=== PATIENT | female | born 1965 | race Caucasian/White ===

== ENCOUNTER 2016-12-11 13:22 | Emergency (ER) | payer BC ==
[~2016-12-11] VITALS: Ht 157.5 cm; Wt 87.0 kg
[~2016-12-11 13:22] MED LIST: CARAS PO; CIPR2.5D11 RIGHT EYE; DOCU-144 PO; HYDR-902 PO; LEVO125T58 PO; ONDA4SOL2 PO; PANT40TA3 PO
[2016-12-11 13:34] VITALS: Ht 157.5 cm; Wt 87.0 kg
[2016-12-11] MEDS ORDERED: LIDOCAINE/MYLANTA 40 ML BTL PO STA (18:00)
[2016-12-11] MEDS ORDERED: METOCLOPRAMIDE 10 MG INJ IV STA (18:00)
[2016-12-11] MEDS ORDERED: morphine 4 MG/ML VIAL IV STA (18:00)
[2016-12-11] MEDS ORDERED: TETR500C3 PO (18:13)
[2016-12-11] MEDS ORDERED: OMEP20CA16 PO (18:13)
[2016-12-11] MEDS ORDERED: BISM-34 PO (18:13)
[2016-12-11] MEDS ORDERED: HYDR-906 PO (18:13)
[2016-12-11] MEDS ORDERED: METR250T PO (18:13)
[2016-12-11 18:14] LABS: ADD SCAN DIFF NO
[2016-12-11 18:17] LABS: BASOPHIL # 0.1 10^3/ul (0.0-0.1); BASOPHILS % 0.7 % (0.0-2.0); EOSINOPHILS # 0.3 10^3/ul (0.0-0.5); EOSINOPHILS % 4.3 % (0.0-7.0); HEMATOCRIT 45.6 % (37.0-47.0); HEMOGLOBIN 15.3 g/dl (12.0-16.0); LYMPHOCYTES # 2.6 10^3/ul (0.8-2.9); LYMPHOCYTES % 38.3 % (15.0-51.0); MEAN CORPUSCULAR HEMOGLOBIN 31.5 pg (29.0-33.0); MEAN CORPUSCULAR HGB CONC 33.6 g/dl (32.0-37.0); MEAN PLATELET VOLUME 10.3 fl (7.4-10.4); MONOCYTE # 0.6 10^3/ul (0.3-0.9); MONOCYTES % 8.5 % (0.0-11.0); NEUTROPHIL # 3.1 10^3/ul (1.6-7.5); NEUTROPHILS % 47.2 % (39.0-77.0); PLATELET COUNT 240 10^3/UL (140-415); RED BLOOD COUNT 4.85 10^6/ul (4.20-5.40); RED CELL DISTRIBUTION WIDTH 11.8 % (11.5-14.5); WHITE BLOOD COUNT 6.7 10^3/ul (4.8-10.8)
[2016-12-11 18:25] LABS: ALBUMIN 4.4 g/dl (3.3-4.9)
[2016-12-11 18:26] LABS: POTASSIUM 3.7 mmol/L (3.5-5.1)
[2016-12-11 18:28] LABS: BILIRUBIN,INDIRECT 0.3 mg/dl (0-1.1); BILIRUBIN,TOTAL 0.3 mg/dl (0.2-1.3); CREATININE 0.72 mg/dl (0.44-1.00)
[2016-12-11 18:29] LABS: ALBUMIN/GLOBULIN RATIO 1.25; TOTAL PROTEIN 7.9 g/dl (6.1-8.1)
[2016-12-11] MEDS ORDERED: LEVO200T6 PO (18:36)
[2016-12-11] MEDS ORDERED: LANS15CA5 PO (18:37)
[2016-12-11] MEDS ORDERED: AMOX500T PO (18:37)
[2016-12-11] MEDS ORDERED: CLAR500T PO (18:38)
[2016-12-11] MEDS ORDERED: IBUP800T25 PO (18:38)
[2016-12-11 19:19] VITALS: BP 113/79; PULSE 70; RESP 20; TEMP 98.2
--- NOTE | 2016-12-11 23:16 | ERD ---
ER Documentation Chief Complaint Date/Time DATE: 12/11/16 TIME: 23:09 Chief Complaint AP SINCE LAT NIGHT, DIARRHEA HPI 51-year-old female with a history of H pylori diagnosed a few months ago presenting with epigastric pain. She states that several months ago she had an EGD done and was diagnosed with H pylori and treated at that time. The treatment did not work as her pain continued and she was reevaluated in the clinic last week, with a stool sample showing that she still had H pylori. She was started on the same 3 medications again which includes Prevacid, amoxicillin , and clarithromycin, but states this is not helping as it did not help the last time. She denies any vomiting but she states that she is very nauseated. Her pain is better with eating, worse with hunger. It is described as a burning , aching pain, intermittent, nonradiating. She has no associated fevers or chills. Some associated loose stools only 1-2 times a day. She does admit she is taking ibuprofen for her pain, which does not help much. She states that she wanted a referral to a tree thinner from the new clinic she is going to, however they refused to give her a referral. ROS All systems reviewed and are negative except as per history of present illness. Medications Home Meds Active Scripts Hydrocodone/Acetaminophen (Durbin 5-325 Tablet) 1 Each Tablet, 1 TAB PO Q6H Y for PAIN, #7 TAB Prov:JOSH LEAL MD 12/11/16 Omeprazole* (Omeprazole*) 20 Mg Capsule.dr, 20 MG PO BID, #60 CAP Prov:JOSH LEAL MD 12/11/16 Tetracycline Hcl* (Tetracycline Hcl*) 500 Mg Cap, 500 MG PO QID for 14 Days, CAP Prov:JOSH LEAL MD 12/11/16 Metronidazole* (Flagyl*) 250 Mg Tablet, 250 MG PO Q6 for 14 Days, TAB Prov:JOSH LEAL MD 12/11/16 Bismuth Subsalicylate* (Bismuth Subsalicylate*) 262 Mg/15 Ml Oral.susp, 30 ML PO Q6 for 14 Days, EA Prov:JOSH LEAL MD 12/11/16 Reported Medications Clarithromycin* (Clarithromycin*) 500 Mg Tablet, 500 MG PO BID, TAB 12/11/16 Ibuprofen* (Ibuprofen*) 800 Mg Tablet, 800 MG PO QID Y for PAIN, TAB 12/11/16 Lansoprazole* (Lansoprazole*) 15 Mg Capsule.dr, 30 MG PO BID, CAP 12/11/16 Amoxicillin* (Amoxil*) 500 Mg Tablet, 1000 MG PO BID, TAB 12/11/16 Levothyroxine Sodium* (Levothyroxine Sodium*) 200 Mcg Tablet, 200 MCG PO BEFORE BREAKFAST, #30 TAB 12/11/16 Discontinued Reported Medications Levothyroxine Sodium (Levothroid) 125 Mcg Tablet, 125 MCG PO AC BREAKFAST 08/14/11 Discontinued Scripts Hydrocodone/Acetaminophen (Durbin 10-325 Tablet) 1 Each Tablet, 1 TAB PO Q6H Y for PAIN, #7 TAB Prov:YASMINE QUAN MD 09/01/16 Docusate Sodium* (Colace*) 100 Mg Capsule, 100 MG PO TID, #30 CAP Prov:YASMINE QUAN MD 09/01/16 Pantoprazole* (Protonix*) 40 Mg Tablet., 40 MG PO DAILY for 30 Days, #60 TAB 2 Refills Prov:ERIC CEDEÑO S. 08/22/16 Ondansetron HCl (Zofran) 4 Mg/5 Ml Solution, 4 MG PO Q6 for 14 Days, #30 Prov:ERIC CEDEÑO S. 08/22/16 Sucralfate* (Carafate*) 1 Gm/10 Ml Susp, 1 GM PO QID for 30 Days, #120 2 Refills Prov:ERIC CEDEÑO S. 08/22/16 Ciprofloxacin Hcl (Ciprofloxacin Hcl) 2.5 Ml Drops, 1 DROP RIGHT EYE BID for 3 Days, #1 BOTTLE Prov:ERIC CEDEÑO S. 08/22/16 Allergies Allergies: Coded Allergies: No Known Allergy (Unverified , 12/11/16) PMhx/Soc History of Surgery: Yes (cholecystectomy) Anesthesia Reaction: No Hx Neurological Disorder: No Hx Respiratory Disorders: No Hx Cardiac Disorders: No Hx Psychiatric Problems: No Hx Miscellaneous Medical Probl: Yes (gastritis) Hx Alcohol Use: No Hx Substance Use: No Hx Tobacco Use: No Smoking Status: Never smoker FmHx Family History: No diabetes Physical Exam Vitals Vital Signs Date Time Temp Pulse Resp B/P Pulse Ox O2 Delivery O2 Flow Rate FiO2 12/11/16 19:19 98.2 70 20 113/79 99 Room Air 12/11/16 18:00 98.1 74 18 126/72 99 Room Air 12/11/16 13:34 98.1 69 18 124/69 99 Physical Exam Const: Well-appearing, mild distress secondary to pain, nontoxic Head: Atraumatic Eyes: Normal Conjunctiva ENT: Normal External Ears, Nose and Mouth. Neck: Full range of motion..~ No meningismus. Resp: Clear to auscultation bilaterally Cardio: Regular rate and rhythm, no murmurs Abd: Soft, moderate epigastric tenderness to palpation, no rebound or guarding, non distended. Normal bowel sounds Skin: No petechiae or rashes Back: No midline or flank tenderness Ext: No cyanosis, or edema Neur: Awake and alert Psych: Normal Mood and Affect Result Diagram: 12/11/16180912/11/161809 Results 24 hrs Laboratory Tests Test 12/11/16 18:10 Alanine Aminotransferase (ALT/SGPT) 85IU/L Albumin 4.4g/dl Albumin/Globulin Ratio 1.25 Alkaline Phosphatase 109IU/L Anion Gap 16 Aspartate Amino Transf (AST/SGOT) 49IU/L Basophils # 0.110^3/ul Basophils % 0.7% Blood Urea Nitrogen 12mg/dl Calcium Level 10.0mg/dl Carbon Dioxide Level 32mmol/L Chloride Level 102mmol/L Creatinine 0.72mg/dl Direct Bilirubin 0.00mg/dl Eosinophils # 0.310^3/ul Eosinophils % 4.3% Globulin 3.50g/dl Glucose Level 100mg/dl Hematocrit 45.6% Hemoglobin 15.3g/dl Indirect Bilirubin 0.3mg/dl Lipase 173U/L Lymphocytes # 2.610^3/ul Lymphocytes % 38.3% Mean Corpuscular Hemoglobin 31.5pg Mean Corpuscular Hemoglobin Concent 33.6g/dl Mean Corpuscular Volume 94.0fl Mean Platelet Volume 10.3fl Monocytes # 0.610^3/ul Monocytes % 8.5% Neutrophils # 3.110^3/ul Neutrophils % 47.2% Nucleated Red Blood Cells # 0.010^3/ul Nucleated Red Blood Cells % 0.0/100WBC Platelet Count 24213^3/UL Potassium Level 3.7mmol/L Red Blood Count 4.8510^6/ul Red Cell Distribution Width 11.8% Sodium Level 146mmol/L Total Bilirubin 0.3mg/dl Total Protein 7.9g/dl White Blood Count 6.710^3/ul Current Medications Medications (Trade) Dose Ordered Sig/Elder Route PRN Reason Start Time Stop Time Status Last Admin Dose Admin Morphine Sulfate (morphine) 4 mg ONCE STAT IV 12/11/16 18:00 12/11/16 18:01 DC 12/11/16 18:06 Metoclopramide HCl (Reglan) 10 mg ONCE STAT IV 12/11/16 18:00 12/11/16 18:01 DC 12/11/16 18:06 Miscellaneous Medication (Gi Cocktail (2)) 40 ml ONCE STAT PO 12/11/16 18:00 12/11/16 18:01 DC 12/11/16 18:06 Procedures/MDM EMERGENT LABS AND DIAGNOSTIC STUDIES: Lab Results above were reviewed and interpreted by me. No significant abnormalities 12-lead EKG was interpreted by Ag Leal MD: Normal Sinus Rhythm with ventricular rate of 63 beats per minute Normal axis Normal intervals No acute ST or T wave changes suggestive of acute ischemia or STEMI. Initial Nursing notes reviewed. Previous Medical Records requested via the Electronic Health Record. EMERGENCY DEPARTMENT COURSE / MEDICAL DECISION MAKING: Patient is presenting with epigastric pain likely secondary to her H pylori infection. She is afebrile and her vitals are stable. I have a low suspicion for an acute surgical abdomen. Her liver enzymes and lipase are all within normal limits. I have a low suspicion for acute coronary syndrome, pneumonia, aortic dissection, bowel obstruction, colitis, or bowel ischemia. The patient was very frustrated when I was talking to her and just wanted to be admitted for an endoscopy. I explained to her that she does not meet criteria for admission and that no one would emergently do that endoscopy on her given she is stable. I offered her morphine for her pain and a GI cocktail, which she agreed to. I also offered to change in her medication regimen for her H pylori. Given that she failed the last treatment, I decided to change her to quadruple therapy with prescriptions for bismuth, Flagyl, tetracycline, with a PPI. I also gave her a few tablets of Durbin to assist with her pain. I recommend that she try to get a GI referral. Patient was agreeable with the plan and discharged in a stable condition with improvement of her symptoms. Repeat abdominal exam prior to discharge was unremarkable with only mild tenderness in the epigastrium without peritonitis. Patient's blood pressure was elevated (>120/80) but appears stable without evidence of hypertensive emergency or urgency. The patient was counseled about the risks of hypertension and urged to pursue outpatient monitoring and therapy within a week with their primary care physician. Departure Diagnosis: Primary Impression: Epigastric pain Additional Impression: Helicobacter pylori (H. pylori) infection Condition: Stable Patient Instructions: Abdominal Pain, Understanding H. pylori and Ulcers Referrals: ADELA HUNTER Additional Instructions: You need a referral to a Dehydrating Press Operator by your primary medical doctor. JOSH LEAL MD Dec 11, 2016 23:15
== END 2016-12-11 19:20 | disposition home or self-care (01) ==
LOC: E/R 13:22
DX: R10.13 Epigastric pain (principal); B96.81 Helicobacter pylori [H. pylori] as the cause of diseases classified elsewhere
CPT/HCPCS: 36415; 80053; 83690; 85025; 96374; 96375; 99284; J2270; J2765; Z7610

== ENCOUNTER 2017-04-29 15:56 | Day surgery (SDC) | payer BC ==
[~2017-04-29] VITALS: Ht 162.6 cm; Wt 89.2 kg
[~2017-04-29 15:56] MED LIST changes: +AMOX500T PO; +BISM-34 PO; -CARAS PO; -CIPR2.5D11 RIGHT EYE; +CLAR500T PO; -DOCU-144 PO; -HYDR-902 PO; +HYDR-906 PO; +IBUP800T25 PO; +LANS15CA5 PO; -LEVO125T58 PO; +LEVO200T6 PO; +METR250T PO; +OMEP20CA16 PO; -ONDA4SOL2 PO; -PANT40TA3 PO; +TETR500C3 PO
[2017-04-29] MEDS ORDERED: LEVO200T6 PO (16:57)
[2017-04-29 17:35] VITALS: BP 148/72; PULSE 61; RESP 24
[2017-04-29] MEDS ORDERED: FENTAnyl 50 MCG/ML VIAL ONE (18:27)
[2017-04-29] MEDS ORDERED: MIDAZOLAM 1 MG/ML 2 ML INJ ONE ×3 (18:27)
--- NOTE | 2017-04-30 05:43 | GILP ---
DATE OF PROCEDURE: 04/29/2017 PROCEDURE PERFORMED: Screening colonoscopy. Rule out colon polyps. POSTOP DIAGNOSIS: 1. 5 mm sessile polyp noted in the mid transverse colon. This was removed with the help of the cold biopsy forceps. 2. Minimum grade 1 external hemorrhoids. DESCRIPTION OF PROCEDURE: After the informed written consent is obtained, patient was asked to lay in the left lateral side. The patient was given 5 mg of Versed and 75 mg of fentanyl and subsequently intravenous anesthesia was given by anesthesiologist, Dr. Montoya. At this time while the patient was somnolent Olympus video colonoscope was introduced into the rectum. The scope was advanced all the way to the cecum. A 3 mm raised polyp was noted in the mid transverse colon on a fold. This polyp was removed with help of the cold biopsy forceps. Endoscope at this time was withdrawn from the cecum. Further evaluation was carried out. No additional abnormality detected. Minimal external hemorrhoids were noted. The procedure was terminated. PLAN: Recommend wait for the pathology report. Dictated By: Sebastian Castro MD /al/jordin /Document#: [id number] ; Dr. Isabel Ayala [place]
== END 2017-04-29 19:30 | disposition home or self-care (01) ==
LOC: GIL 15:56
PROVIDERS: ATTEND Internal Medicine Gastroenterology
DX: Z12.11 Encounter for screening for malignant neoplasm of colon (principal); D12.3 Benign neoplasm of transverse colon; K64.4 Residual hemorrhoidal skin tags
CPT/HCPCS: 45380; J2250; J3010; Z7610; 88305

== ENCOUNTER → 2017-07-07 | Outpatient (CLI) | payer BC ==
[~2017-07-07] MED LIST changes: -AMOX500T PO; +BARIUM SULFATE 135 ML (E-Z HD) PO ONE; -BISM-34 PO; -CLAR500T PO; -HYDR-906 PO; -IBUP800T25 PO; -LANS15CA5 PO; -METR250T PO; -OMEP20CA16 PO; -TETR500C3 PO
--- NOTE | 2017-07-08 15:08 | RADRPT ---
PROCEDURE: Video-fluoroscopy swallowing study. CLINICAL INDICATION: Dysphagia. TECHNIQUE: Fluoroscopic guided video swallowing study was done in conjunction with the speech ther apist. The study was confined to the oral, pharyngeal, and cervical phases of the swallowing mechani sm. 1.0 minutes of fluoroscopy time was used. 13 series of images were obtained. COMPARISON: No prior study is available for comparison. FINDINGS: There is no evidence of aspiration during the exam. An anterior osteophyte is present and C6-7 causi ng effacement of the esophagus posteriorly. However, the esophageal diameter is normal at this site. IMPRESSION: 1. No aspiration during swallowing. 2. Please refer to the speech therapist's recommendations for future feedings. RPTAT: QQ .Ammon Kaiser MD, Date Time Electronically viewed and signed by .Ammon Kaiser MD, on 07/08/2017 15:08 .R/
== END | disposition home or self-care (01) ==
LOC: RAD 12:23
PROVIDERS: ATTEND Otolaryngology Facial Plastic Surgery
DX: R13.10 Dysphagia, unspecified (principal); K21.9 Gastro-esophageal reflux disease without esophagitis
CPT/HCPCS: 74230; 92611; Z7610

== ENCOUNTER 2017-10-29 10:00 | Day surgery (SDC) | END 2017-10-29 13:29 | disposition home or self-care (01) ==

== ENCOUNTER 2018-06-28 11:20 | Inpatient (IN) | END 2018-06-30 12:35 | disposition home or self-care (01) | DRG 206 ==

== ENCOUNTER 2018-10-31 12:42 | Emergency (ER) | payer BC ==
[~2018-10-31] VITALS: Ht 165.1 cm; Wt 83.9 kg
[~2018-10-31 12:42] MED LIST changes: -BARIUM SULFATE 135 ML (E-Z HD) PO ONE; +LEVO125T7 PO; -LEVO200T6 PO; +OMEP20CA16 PO
[2018-10-31 13:00] VITALS: Ht 165.1 cm; Wt 83.9 kg
[2018-10-31 16:51] VITALS: BP 116/65; PULSE 82; RESP 18
--- NOTE | 2018-10-31 18:45 | ERD ---
ER Documentation Chief Complaint Chief Complaint NOSE BLEED & NASAL SWELLING X2 DAYS, DIZZINESS AND CP HPI Patient is a 53-year-old female with no medical problems who presents with nosebleed. She has left-sided chest pain which she describes as "mild". She said that the symptoms started 6 or 7 months ago. She has not on blood thinning medications. The nosebleed has stopped at this time. Upon review of old medical records the patient has multiple visits to the ER for various complaints. Review of the emergency department information exchange system shows visits to 3 separate emergency departments. Her primary doctor is Dr. Juana Castañeda. ROS All systems reviewed and are negative except as per history of present illness. Medications Home Meds Active Scripts Omeprazole* (Omeprazole*) 20 Mg Capsule., 20 MG PO BEFORE BREAKFAST, #30 CAP 2 Refills Prov:KEKE SANFORD 06/30/18 Levothyroxine Sodium* (Levothyroxine Sodium*) 125 Mcg Tablet, 250 MCG PO BEFORE BREAKFAST for 30 Days, #60 TAB 3 Refills Prov:KEKE SANFORD 06/30/18 Allergies Allergies: Coded Allergies: No Known Allergy (Unverified , 06/26/18) PMhx/Soc History of Surgery: Yes (hysterectomy and appendectomy) Anesthesia Reaction: No Hx Neurological Disorder: No Hx Respiratory Disorders: Yes (PE) Hx Cardiac Disorders: No Hx Psychiatric Problems: No Hx Miscellaneous Medical Probl: Yes (pre diabetes) Hx Alcohol Use: No Hx Substance Use: No Hx Tobacco Use: No FmHx Family History: No diabetes Physical Exam Vitals Vital Signs Date Temp Pulse Resp B/P (MAP) Pulse Ox O2 O2 Flow FiO2 Time Delivery Rate 10/31/18 98.1 82 18 116/65 100 Room Air 16:51 (82) 10/31/18 97.9 72 18 130/78 96 13:00 (95) Physical Exam Const: No acute distress Head: Atraumatic Eyes: Normal Conjunctiva ENT: Normal External Ears, Nose and Mouth. No bleeding from the nares at this time. Neck: Full range of motion. No meningismus. Resp: Clear to auscultation bilaterally Cardio: Regular rate and rhythm, no murmurs Abd: Soft, non tender, non distended. Normal bowel sounds Skin: No petechiae or rashes Back: No midline or flank tenderness Ext: No cyanosis, or edema Neur: Awake and alert Psych: Normal Mood and Affect Procedures/MDM EKG read by me: Rate/Rhythm: Regular rate and rhythm at a normal rate Intervals: Normal Impression: No evidence of ischemia or arrhythmia Patient is a 53-year-old female who presents with chest pain and nosebleed. EKG was normal and did not show any signs of acute ischemia. The patient has no active bleeding at this time. I doubt posterior nosebleed. I doubt acute coronary syndrome, pneumonia, pneumothorax, pulmonary embolism, or aortic disse ction. The patient will be discharged but will need to follow-up closely with her primary doctor within 24-48 hours. She can return sooner for any worsening symptoms. Departure Diagnosis: Primary Impression: Chest pain Chest pain type: unspecified Qualified Codes: R07.9 - Chest pain, unspecified Additional Impression: Epistaxis Condition: Fair Patient Instructions: Chest Pain, Uncertain Cause, Epistaxis (Adult) Referrals: Dr. Juana Castañeda Additional Instructions: Llame al doctor MAALEJANDRO y josé mary beth MARISOL PARA DENTRO DE 1-2 PETTIT.Dgale a la secretaria que nosotros le instruimos hacer esta marisol.Avise o llame si beasley condicin se empeora antes de la marisol. Regresa aqui si peor o no mejor. YASMINE QUAN MD Oct 31, 2018 18:45
== END 2018-10-31 16:59 | disposition home or self-care (01) ==
LOC: FTE 12:42
DX: R07.9 Chest pain, unspecified (principal)
CPT/HCPCS: 93005

== ENCOUNTER 2019-03-11 13:51 | Emergency (ER) | payer BC ==
[~2019-03-11] VITALS: Ht 162.6 cm; Wt 89.0 kg
[2019-03-11 13:54] VITALS: BP 122/73; PULSE 84; RESP 18; Ht 162.6 cm; Wt 89.0 kg
[2019-03-11] MEDS ORDERED: BEN25 PO (14:35)
[2019-03-11] MEDS ORDERED: HC30CR25 TOP (14:35)
[2019-03-11] MEDS ORDERED: ACET325T33 PO (14:35)
[2019-03-11] MEDS ORDERED: SOD CHLORIDE 0.9% 1,000 ML IV STA (14:46)
--- NOTE | 2019-03-11 21:30 | ERD ---
ER Documentation Chief Complaint Chief Complaint swelling on rt side of face , headache x 2 days HPI 53 year old female presenting to the ER for bug bite x 2 days. Patient states she was walking in the park an felt something sting the side of her check. Patient states she thought it may have been a bee. Patient denies any allergies to bee's and states she just has had some irritation on her right side of her face. Patient denies shortness of breath, chest pain, or rash. ROS All systems reviewed and are negative except as per history of present illness. Medications Home Meds Active Scripts Hydrocortisone* Topical (Hydrocortisone* Topical) 2.5%-28.3 Gm Cream..g., 1 APPLIC TOP ONCE, #1 TUB Prov:KRISTA VELOZ PA-C 03/11/19 Acetaminophen* (Tylenol*) 325 Mg Tablet, 2 TAB PO Q6 PRN for PAIN AND OR ELEVATED TEMP, #20 TAB Prov:KRISTA VELOZ PA-C 03/11/19 Diphenhydramine Hcl* (Benadryl*) 25 Mg Cap, 25 MG PO Q6, #30 CAP Prov:KRISTA VELOZ PA-C 03/11/19 Omeprazole* (Omeprazole*) 20 Mg Capsule.dr, 20 MG PO BEFORE BREAKFAST, #30 CAP 2 Refills Prov:KEKE SANFORD 06/30/18 Levothyroxine Sodium* (Levothyroxine Sodium*) 125 Mcg Tablet, 250 MCG PO BEFORE BREAKFAST for 30 Days, #60 TAB 3 Refills Prov:KEKE SANFORD 06/30/18 Allergies Allergies: Coded Allergies: No Known Allergy (Unverified , 06/26/18) PMhx/Soc History of Surgery: Yes (hysterectomy , Fadia) Anesthesia Reaction: No Hx Neurological Disorder: No Hx Respiratory Disorders: Yes (PE) Hx Cardiac Disorders: No Hx Psychiatric Problems: No Hx Miscellaneous Medical Probl: Yes (pre diabetes) Hx Alcohol Use: No Hx Substance Use: No Hx Tobacco Use: No Smoking Status: Never smoker FmHx Family History: No diabetes, No coronary disease, No other Physical Exam Vitals Vital Signs Date Temp Pulse Resp B/P (MAP) Pulse Ox O2 O2 Flow FiO2 Time Delivery Rate 03/11/19 99.1 84 18 122/73 97 13:54 (89) Physical Exam Const: No acute distress Head: Atraumatic Eyes: Normal Conjunctiva ENT: small < 1cm red lesion on right cheek, no drainage, no ulcerations, Neck: Full range of motion. No meningismus. Resp: Clear to auscultation bilaterally Cardio: Regular rate and rhythm, no murmurs Abd: Soft, non tender, non distended. Normal bowel sounds Skin: No petechiae or rashes Results 24 hrs Current Medications Medications Dose Sig/Elder Start Time Status Last (Trade) Ordered Route PRN Stop Time Admin Dose Reason Admin Sodium 1,000 ml @ Q1H STAT 03/11/19 DC Chloride 1,000 mls/hr IV 14:46 03/11/19 14:53 Procedures/[facility] ED course: Physical examination [facility] Patient is 53 year old female presenting to the ED for a possible bee sting. Physical examination was unremarkable. Patient had small red <1cm lesion on her right cheek. I inspected the lesion under a bright light and did not see any stinger present. Their is no fluctuant masses and no drainage from the lesion. It does appear that the patient has scratched the area and is a little irritated. Patient is showing no signs of respiratory distress. I have low suspicion for anaphylaxis, respiratory failure, cellulitis, foreign body retention, shingles, or infection. The patient was advised she should follow up with her PCP provider regarding this visit in 1-2 days. The patient was advised if symptoms worsen return the ED immediately. Patient was given prescription for Benadryl, topical hydrocortisone, and acetomorphine. Patient had no further questions on discharge. Departure Diagnosis: Primary Impression: Bee sting Encounter type: initial encounter Injury intent: undetermined intent Qualified Codes: T63.444A - Toxic effect of venom of bees, undetermined, initial encounter Condition: Stable Patient Instructions: Insect Bites and Stings, Insect Bite KRISTA VELOZ PA-C Mar 11, 2019 21:28
== END 2019-03-11 14:53 | disposition home or self-care (01) ==
LOC: FTE 13:51
DX: T63.444A Toxic effect of venom of bees, undetermined, initial encounter (principal)
CPT/HCPCS: 99283; J7030